=== PATIENT | male | born 1960 | race Hispanic/Latino ===

== ENCOUNTER 2022-11-01 13:49 | Outpatient (CLI) | payer BC | END 2022-11-01 13:50 | disposition home or self-care (01) | LOC: BICRAD 13:49 | PROVIDERS: ATTEND Podiatrist | DX: S82.831D Other fracture of upper and lower end of right fibula, subsequent encounter for closed fracture with routine healing (principal); S82.61XD Displaced fracture of lateral malleolus of right fibula, subsequent encounter for closed fracture with routine healing ==

== ENCOUNTER 2022-11-21 13:43 | Outpatient (CLI) | payer BC | END 2022-11-21 13:44 | disposition home or self-care (01) | LOC: BICRAD 13:43 | PROVIDERS: ATTEND Podiatrist | DX: S82.401D Unspecified fracture of shaft of right fibula, subsequent encounter for closed fracture with routine healing (principal) ==

== ENCOUNTER 2023-03-08 14:52 | Outpatient (CLI) | payer BC | END 2023-03-08 14:53 | disposition home or self-care (01) | LOC: BICRAD 14:52 | PROVIDERS: ATTEND Podiatrist | DX: M84.471D Pathological fracture, right ankle, subsequent encounter for fracture with routine healing (principal) ==